=== PATIENT | female | born 1940 | race Caucasian/White ===

== ENCOUNTER → 2016-08-04 | Outpatient (CLI) | payer OTHER ==
[~2016-08-04] MED LIST: ANT25 PO; B-CO-25 PO; DLTCD/240 PO; FNTTP75 TOP; HYDR-5688 PO; IPRASOL4 NEB; LOSA100T65 PO; LSX40 PO; MECL1TAB42 PO; NAPR500T3 PO; OXYB15TA PO; PILO5TAB10 PO; POTA1TAB97 PO; POTA20TA13 PO; RANI150T2 PO; SENN-56 PO; SENN-61 PO; SYMIN160 INH; ULT50 PO; [UNRECOGNIZED DRUG - CODE] PO
[2016-08-04 17:24] LABS: BASO % 0.5 %; BASO ABS # 0.04 K/uL (0-0.2); COMPLETE YES; EOS % 5.1 %; HEMATOCRIT 39.9 % (37-47); IG% 0.2 %; LYMPH % 25.9 %; LYMPH ABS # 2.19 K/uL (1.2-3.4); MEAN CELL VOLUME 91.5 fL (80-100); MEAN CORPUSCULAR HGB CONC 33.8 g/dl (32-36); MEAN PLATELET VOLUME 11.1 fL (7.4-10.4); MONO % 8.2 %; NEUT % 60.1 %; PLATELET COUNT 227 K/uL (130-400); RED BLOOD COUNT 4.36 M/uL (4.2-5.4); WHITE BLOOD COUNT 8.45 K/uL (4.8-10.8)
[2016-08-04 17:26] LABS: URINE APPEARANCE CLEAR (CLEAR); URINE BILIRUBIN NEG (NEG); URINE COLOR YELLOW; URINE NITRITE NEG (NEG); URINE SPECIFIC GRAVITY 1.012 (1.000-1.030); UROBILINOGEN NEG (NEG)
[2016-08-04 17:29] LABS: MANUAL MICROSCOPIC REQUIRED? NO; REVIEW REQ? NO
[2016-08-04 18:08] LABS: ALKALINE PHOSPHATASE 86 U/L (45-117); ALT/SGPT 18 U/L (12-78); AST/SGOT 12 U/L (15-37); BLOOD UREA NITROGEN 11 mg/dl (7-18); BUN/CREATININE RATIO 18.8 (10-20); CALCIUM 9.2 mg/dl (8.5-10.1); CARBON DIOXIDE 30 mmol/L (21-32); CHLORIDE 107 mmol/L (98-107); CREATININE 0.58 mg/dl (0.60-1.20); GLUCOSE 86 mg/dl (70-99); POTASSIUM 3.2 mmol/L (3.5-5.1); SODIUM 144 mmol/L (136-145); TOTAL IRON BINDING CAPACITY 278 mcg/dl (250-450)
[2016-08-07 19:19] LABS: ANTI-SS-A <1.0 NEG AI (<1.0 NEG); ANTI-SS-B <1.0 NEG AI (<1.0 NEG)
--- NOTE | 2016-08-10 07:26 | CODING QUERY MEDICAL NECESSITY ---
CQSUPPORTING DIAGNOSIS NEEDED A supporting diagnosis is required for the test/procedure performed on this patient in order for us to be reimbursed by the patient's insurance. Please provide a supporting diagnosis for the following test/procedure listed below next to the test name along with your signature. *If there is no additional diagnosis for this patient that would support the following test/procedure please document that below next to the test/procedure. Test(s)/Procedure(s) that require a supporting diagnosis: DOS 08/04/16 VITAMIN B12 SERUM IRON STUDIES THESE TEST WERE ORDERED BY AIDEE LO Provider Signature: Date: Thank you Sandee Douglas Health Information Management Once completed, please kindly fax back to [phone] For questions please call [phone]
== END | disposition home or self-care (01) ==
LOC: C.LAB 16:15
DX: Z87.19 Personal history of other diseases of the digestive system (principal); J44.9 Chronic obstructive pulmonary disease, unspecified; H40.9 Unspecified glaucoma; R06.09 Other forms of dyspnea; R05 Cough; I67.1 Cerebral aneurysm, nonruptured; R32 Unspecified urinary incontinence; J45.909 Unspecified asthma, uncomplicated; R11.0 Nausea; R53.83 Other fatigue; E56.8 Deficiency of other vitamins

== ENCOUNTER 2016-09-07 18:15 | Emergency (ER) | payer OTHER ==
[~2016-09-07] VITALS: Ht 165.1 cm; Wt 121.8 kg
[~2016-09-07 18:15] MED LIST changes: -ANT25 PO; -B-CO-25 PO; -FNTTP75 TOP; -HYDR-5688 PO; -MECL1TAB42 PO; -POTA1TAB97 PO; -SENN-56 PO; -SYMIN160 INH; -[UNRECOGNIZED DRUG - CODE] PO
[2016-09-07 18:27] VITALS: TEMP 37.2; Ht 165.1 cm; Wt 121.8 kg
--- NOTE | 2016-09-07 19:04 | DIAGNOSTIC IMAGING REPORT ---
HEAD CT NONCONTRAST CT DOSE: 2189.99 mGy.cm HISTORY: fall TECHNIQUE: Multiaxial CT images of the head were performed without the use of intravenous contrast. Automated exposure control was utilized for this study. Comparison: Head CT 12/30/2015. Findings: The paranasal sinuses and mastoid air cells are clear. The calvarium and skull base are intact. The ventricles and sulci are within normal limits. There is no mass, hematoma, midline shift, or acute infarct. Impression: No acute intracranial abnormality. Electronically signed by: Efrain Hope M.D. 09/07/2016 7:03 PM Dictated Date/Time: 09/07/2016 6:59 PM
--- NOTE | 2016-09-07 19:10 | DIAGNOSTIC IMAGING REPORT ---
CERVICAL SPINE CT CT DOSE: HISTORY: fall TECHNIQUE: Multiaxial CT images of the cervical spine were performed and reformatted in the sagittal and coronal plane without the use of contrast. COMPARISON: None. FINDINGS: No fractures. No subluxation. Prevertebral soft tissues and the C1-C2 interval are intact. No pneumothorax. Multinodular thyroid gland. A 3 mm nodule within left lung apex. This is likely benign. Moderate to space narrowing at C5-C6 and C6-C7 with endplate osteophytes. Moderate facet degenerative changes throughout the cervical spine. IMPRESSION: No fractures within the cervical spine. Electronically signed by: Efrain Hope M.D. 09/07/2016 7:09 PM Dictated Date/Time: 09/07/2016 7:03 PM
[2016-09-07] MEDS ORDERED: ANT25 PO (20:01)
[2016-09-07] MEDS ORDERED: [UNRECOGNIZED DRUG - CODE] PO (20:01)
[2016-09-07 20:06] VITALS: BP 157/71; PULSE 65; O2SAT 96
--- NOTE | 2016-09-08 18:37 | EMERGENCY ROOM VISIT NOTE ---
History Report prepared by Angelo: Bere Bartlett Under the Supervision of: Dr. Reynaldo Quintana M.D. 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 The patient came to the ED via ambulance from the [facility] parking lot. She states that she was on her way to physical therapy at the edema clinic. The patient states that her was pushing her in her Rollator walker when the walker hit a break between the pavement and the sidewalk that caused her walker to fall over. The patient's fell to the side and she fell backwards. The patient states that she fell onto the curb and hit her buttocks/lower back. The patient states that her back was cushioned by the cushioned bar of the walker. She states that everything happened so quickly that she is unsure of if she hit head. She states that she laid on the ground on her back with her legs up for about 10 minutes. She experienced some dizziness when she got up from lying on the ground and is still experiencing dizziness with changes in position. The patient states that she did hit her left arm on the ground and has an abrasion there. She is also complaining of some left hip pain. The patient is also experiencing some mild neck pain. She states that she has chronic pain that may have been aggravated by falling. The patient has a fentanyl patch in place on her back. Pt denies LOC, headache, visual changes, chest pain, breathing difficulties, nausea, vomiting, abdominal pain, back pain, extremity pain beside left hip pain, numbness, weakness, open wounds, active bleeding, or other complaints. Source of History: patient Onset: BUSINESS PROFESSOR Position: other (global) Quality: other (fall) Timing: other (sudden) Associated Symptoms: + neck pain (mild) Note: dizziness with changes in position, left hip pain Review of Systems See HPI for pertinent positives and negatives. A total of ten systems were reviewed and were otherwise negative. Past Medical & Surgical Medical Problems: (1) Aneurysm of middle cerebral artery (2) Asthma (3) Bilateral cellulitis of lower leg (4) Contusion of lower limb, right (5) COPD (chronic obstructive pulmonary disease) (6) emphysema (7) Hypertension (8) Kidney disease (9) Venous stasis dermatitis Family History Lung disease Social History Smoking Status: Never Smoker Alcohol Use: none Drug Use: none Marital Status: Housing Status: lives with family Occupation Status: retired Current/Historical Medications Scheduled Diltiazem Hcl (Diltiazem Cd), 480 MG PO DAILY Furosemide (Furosemide), 40 MG PO DAILY Losartan Potassium (Cozaar), 100 MG PO DAILY Naproxen (Naproxen), 500 MG PO BID Oxybutynin Chloride (Oxybutynin Chloride Er), 15 MG PO BID Pilocarpine (Salagen), 10 MG PO QAM Pilocarpine HCl (Pilocarpine Hydrochloride), 1 TAB PO QID Potassium Chloride Microencaps (Potassium Chloride Er), 20 MEQ PO DAILY Ranitidine HCl (Ranitidine HCl), 300 MG PO QAM Senna (Senokot), 17.2 MG PO QAM Scheduled PRN Ipratropium-Albuterol (Duoneb), 3 ML NEB Q4H PRN for SOB/Wheezing Meclizine HCl (Meclizine HCl), 1 TAB PO Q8 PRN for Dizziness or Vertigo Tramadol HCl (Tramadol HCl), 50-100 MG PO Q6H PRN for Pain Allergies Coded Allergies: Penicillins (Verified Allergy, Unknown, Rash, 09/07/16) Shellfish (Verified Allergy, Unknown, SHORTNESS OF BREATH, 09/07/16) Physical Exam Vital Signs Date Time Temp Pulse Resp B/P (MAP) Pulse Ox O2 Delivery O2 Flow Rate FiO2 09/07/16 20:06 65 18 157/71 96 09/07/16 18:27 37.2 70 18 165/84 95 Room Air Physical Exam GENERAL: Awake, alert, well appearing, no distress HEAD: Normocephalic, atraumatic. No hampton sign. No raccoon eyes. EYES: Normal conjunctiva. PERRL. EARS: External ears normal. Right TM normal. Left TM normal. NOSE: Atraumatic OROPHARYNX: Lips, tongue, and mucosa unremarkable. No erythema or exudate. NECK: No tracheal deviation or JVD. Mild posterior lower midline tenderness. No step offs noted. RESPIRATORY: CTA bilaterally CARDIAC: Regular rate, normal rhythm. ABDOMEN: Inspection reveals no abnormalities. Soft, non distended. No tenderness to palpation. No hernias. BACK: No midline step offs or tenderness to palpation. Unremarkable. PELVIS: Stable to rock. SKIN: Normal. LYMPH: No adenopathy. MUSCULOSKELETAL: Small abrasion to left proximal forearm. Upper and lower extremities are otherwise atraumatic. Right lower extremity edema which patient states is chronic. Good range of motion of both hips. NEURO: GCS 15. Normal sensorium. No sensory or motor deficits noted. Medical Decision & Procedures ER Provider Diagnostic Interpretation: Radiology results as stated below per my review and radiologist interpretation: HEAD CT NONCONTRAST Findings: The paranasal sinuses and mastoid air cells are clear. The calvarium and skull base are intact. The ventricles and sulci are within normal limits. There is no mass, hematoma, midline shift, or acute infarct. Impression: No acute intracranial abnormality. Electronically signed by: Efrain Hope M.D. 09/07/2016 7:03 PM Dictated Date/Time: 09/07/2016 6:[address] FINDINGS: No fractures. No subluxation. Prevertebral soft tissues and the C1-C2 interval are intact. No pneumothorax. Multinodular thyroid gland. A 3 mm nodule within left lung apex. This is likely benign. Moderate to space narrowing at C5-C6 and C6-C7 with endplate osteophytes. Moderate facet degenerative changes throughout the cervical spine. IMPRESSION: No fractures within the cervical spine. Electronically signed by: Efrain Hope M.D. 09/07/2016 7:09 PM Dictated Date/Time: 09/07/2016 7:03 PM ED Course 1821: The patient was evaluated in room C9. A complete history and physical exam was performed. 1943: I reevaluated the patient. She is feeling well and is in agreement with following up as an outpatient. Discussed results and discharge instructions: she verbalized understanding and agreement. The patient is ready for discharge. Medical Decision Medication Reconciliation: I attest that I have personally reviewed the patient' s current medication list Blood pressure screening: Patient was found to have an elevated blood pressure and was referred to their primary doctor for recheck and further treatment. Triage Nursing notes reviewed. The patient's presentation and history were concerning for an accidental fall. Etiologies such as cervical strain, intracranial injury, soft tissue injury, fracture, dislocation, as well as others were entertained. The patient was evaluated. Clinically she was doing relatively well given the situation. The patient underwent CT imaging of the head and neck. Thankfully these were negative. She declined analgesia. She was reassessed and was doing well. Her presented to the emergency department. I did review all of the findings with them. The patient feels comfortable with conservative management. If she worsens in any way she will be back.I gave my usual and customary discussion regarding this issue. By the evaluation outlined above other emergent etiologies such as those listed in the differential, as well as others, were deemed relatively unlikely. The patient was educated about the findings as listed above. All questions were answered and the patient was pleased with the treatment. Return instructions were outlined and the patient was discharged in stable condition. The patient was referred to her PCP for follow-up for a recheck of the current condition. Impression Primary Impression: Accidental fall Additional Impression: Neck pain Scribe Attestation The scribe's documentation has been prepared under my direction and personally reviewed by me in its entirety. I confirm that the note above accurately reflects all work, treatment, procedures, and medical decision making performed by me. Departure Information Dispostion Home / Self-Care Referrals Lonnie Levy D.O. (PCP) Forms HOME CARE DOCUMENTATION FORM, IMPORTANT VISIT INFORMATION Patient Instructions My [facility] Additional Instructions Continue current medications. Warm compresses for 20 minutes at a time four times daily for 2-3 days. Tylenol: Take 1000 mg every 6 hours as needed for pain. Do not take more than 3000 mg in a 24 hour period. Follow-up with your primary physician next week for a recheck. Return to the ER for increasing neck pain, vomiting, chest pain, headache, passing out, difficulty breathing, fevers, numbness, tingling, worsening of your condition, or as needed. Problem Qualifiers Primary Impression: Accidental fall Encounter type: initial encounter Qualified Codes: W19.XXXA - Unspecified fall, initial encounter
== END 2016-09-07 20:07 | disposition home or self-care (01) ==
LOC: EDBD 18:15 → C.EDC 18:18
DX: M54.2 Cervicalgia (principal); W01.0XXA Fall on same level from slipping, tripping and stumbling without subsequent striking against object, initial encounter; I12.9 Hypertensive chronic kidney disease with stage 1 through stage 4 chronic kidney disease, or unspecified chronic kidney disease; N18.9 Chronic kidney disease, unspecified; J44.9 Chronic obstructive pulmonary disease, unspecified; J43.9 Emphysema, unspecified; J45.909 Unspecified asthma, uncomplicated; Z87.828 Personal history of other (healed) physical injury and trauma; Z79.899 Other long term (current) drug therapy; Z88.0 Allergy status to penicillin; Z91.018 Allergy to other foods

== ENCOUNTER → 2017-03-29 | Day surgery (SDC) | payer OTHER ==
[2017-03-22 13:10] VITALS: Ht 165.1 cm; Wt 120.9 kg
[~2017-03-29] VITALS: Ht 165.1 cm; Wt 120.9 kg
[~2017-03-29] MED LIST changes: +ANT25 PO; +B-CO-25 PO; +FNTTP75 TOP; +HYDR-5688 PO; -LSX40 PO; +MECL1TAB42 PO; -NAPR500T3 PO; +POTA1TAB97 PO; +PROPOFOL IV EMULSION 10 MG/ML 20 ML VIAL IV ONE; +SENN-56 PO; -SENN-61 PO; +SODIUM CHLORIDE 0.9% 500ML 500 ML IV ONE; +SYMIN160 INH; -ULT50 PO
[2017-03-29 14:45] VITALS: TEMP 36.8
--- NOTE | 2017-03-29 14:50 | Endo History and Physical ---
History & Physical Date of Service: Mar 29, 2017. Chief Complaint: Constipation, family hx colon ca Referring Physician: Lonnie Levy History of Present Illness Constipation Past Medical History Arthritis, Asthma, Hypertension, COPD Past Surgical History Hx Cardiac Surgery: Yes (HEART CATH, NO STENTS) Hx Internal Defibrillator: No Hx Pacemaker: No Hx Abdominal Surgery: Yes (PINA) Hx of Implantable Prosthesis: No Hx Post-Op Nausea and Vomiting: No Hx Cancer Surgery: No Hx Thoracic Surgery: No Hx Orthopedic: No Hx Urinary Tract Surgery: No Family History Colon CA Social History Smoking Status: Former Smoker Hx Substance Use: No Hx Alcohol Use: No Allergies Coded Allergies: Penicillins (Verified Allergy, Unknown, Rash, 03/22/17) Shellfish (Verified Allergy, Unknown, SHORTNESS OF BREATH, 03/22/17) Current Medications Reported Home Medications Medications Dose Route/Sig Max Daily Dose Days Date Category Dose Instructions Fentanyl 75 Mcg Tdsy 1 Patch TOP Q72H 01/31/17 Reported Symbicort 160/4.5 Inhaler (Budesonide/Formoterol Fumarate) Aero 2 Puffs INH BID PRN 01/31/17 Reported Meclizine Hcl 25 Mg Tab 1 Tab PO HS 01/31/17 Reported Super B Complex Maxi (B-Complex W/ Folic Acid) 1 Tab Tab 1 Tab PO DAILY 01/31/17 Reported Senna-Lax (Sennosides) 8.6 Mg Tab 1 Tab PO BID 01/31/17 Reported K-Tab (Potassium Chloride) 20 Meq Tab 1 Tab PO QPM 01/31/17 Reported [place] 5MG/325MG (Acetaminophen/Hydrocodone Bitart) Tab 1 Tablet PO Q4H PRN 01/31/17 Reported PRN PAIN Meclizine HCl 25 Mg Tab 2 Tabs PO QAM 09/07/16 Reported Diltiazem Cd (Diltiazem Hcl) 240 Mg Capcr 2 Tabs PO QAM 12/30/15 Reported Salagen (Pilocarpine HCl) 5 Mg Tab 2 Tabs PO BID 09/16/15 Reported Potassium Chloride Er (Potassium Chloride Microencaps) 20 Meq Tab 2 Tab PO QAM 11/19/14 Reported Oxybutynin Chloride Er (Oxybutynin Chloride) 15 Mg Tab 15 Mg PO BID 11/19/14 Reported Cozaar (Losartan Potassium) 100 Mg Tab 100 Mg PO QAM 11/19/14 Reported Duoneb (Ipratropium-Albuterol) 3 Ml Nebu 3 Ml NEB Q4H PRN 01/15/14 Reported Ranitidine HCl 150 Mg Tab 150 Mg PO BID 01/15/14 Reported Vital Signs Weight (Kilograms): 120.91 Height (Feet): 5 Height (Inches): 5 Date Time Temp Pulse Resp B/P (MAP) Pulse Ox O2 Delivery O2 Flow Rate FiO2 03/29/17 14:45 36.8 64 18 175/70 (105) 94 Room Air Physical Exam General Appearance: no apparent distress Respiratory/Chest: Auscultation: breath sounds normal Cardiovascular: Heart Auscultation: RRR Abdomen: Inspection & Palpation: soft Assessment and Plan Constipation - Cscopy
--- NOTE | 2017-03-29 15:57 | GI REPORT ---
Procedure Date: 03/29/2017 2:51 PM Procedure: Colonoscopy Indications: Constipation Medicines: See the Anesthesia note for documentation of the administered medications Complications: No immediate complications. Estimated Blood Loss: Estimated blood loss: none. Procedure: Pre-Anesthesia Assessment: - ASA Grade Assessment: III - A patient with severe systemic disease. After I obtained informed consent, the scope was passed under direct vision. Throughout the procedure, the patient's blood pressure, pulse, and oxygen saturations were monitored continuously. The scope was introduced through the anus and advanced to the ileocecal valve. The patient tolerated the procedure well. The quality of the bowel preparation was fair. The colonoscopy was unusually difficult due to a redundant colon. Findings: Rectal prolapse. The colon was markedly redundant. There was a large amount of liquid opaque stool in the colon; the right colon and cecal cap could not be completely cleared. The cecum could not be intubated due to excessive looping. The examined portion of the colon was normal Impression: - Preparation of the colon was fair. Cecal cap not intubated. - Rectal prolapse. Examined portion of the colon was normal. Recommendation: - Consider cologuard. - Discharge patient to home. Hector Benítez M.D. Hector Benítez MD 03/29/2017 3:56:45 PM This report has been signed electronically. Note Initiated On: 03/29/2017 2:51 PM I attest to the content of the Intraoperative Record and orders documented therein, exceptions below
--- NOTE | 2017-03-29 16:10 | Anesthesiology Progress Note ---
Anesthesia Post Op Note Date & Time Mar 29, 2017 at 16:09 Vital Signs Vital Signs Past 12 Hours Date Time Temp Pulse Resp B/P (MAP) Pulse Ox O2 Delivery O2 Flow Rate FiO2 03/29/17 15:54 69 18 141/68 (92) 98 Room Air 03/29/17 14:45 36.8 64 18 175/70 (105) 94 Room Air Notes Mental Status: alert / awake / arousable, participated in evaluation Pt Amnestic to Procedure: Yes Nausea / Vomiting: adequately controlled Pain: adequately controlled Airway Patency, RR, SpO2: stable & adequate BP & HR: stable & adequate Hydration State: stable & adequate Anesthetic Complications: no major complications apparent
--- NOTE | 2017-03-29 16:21 | Discharge Instructions ---
Endoscopy Patient Instructions Date / Procedure(s) Performed Mar 29, 2017. Colonoscopy Allergy Information Coded Allergies: Penicillins (Verified Allergy, Unknown, Rash, 03/22/17) Shellfish (Verified Allergy, Unknown, SHORTNESS OF BREATH, 03/22/17) Discharge Date / Findings Mar 29, 2017. Fair prep. Scope advanced only to IC valve, but grossly normal. Provider Instructions Activity Restrictions - No exercising or heavy lifting for 24 hours. - Do not drink alcohol the day of the procedure. - Do not drive a car or operate machinery until the day after the procedure. - Do not make any important decisions or sign important papers in 24 hours after the procedure. Following Day: - Return to full activity which may include returning to work/school. Diet Start your diet with liquids and light foods (jello, soup, juice, toast). Then eat your usual diet if not nauseated. Treatment For Common After Affects For mild abdominal pain, bloating, or excessive gas: - Rest - Eat lightly - Lie on right side Follow-Up Information Follow-up with Lonnie Levy as scheduled Anesthesia Information What You Should Know You have had a procedure that required some medicine to reduce anxiety and discomfort. This treatment is called moderate sedation. After receiving the treatment, you may be sleepy, but you will be able to breathe on your own. The effects of the treatment may last for several hours. Follow these instructions along with Activity/Diet recommendations noted above: * Do NOT do anything where dizziness or clumsiness would be dangerous. * Rest quietly at home today, then you can be up and about tomorrow. * Have a responsible person stay with you the rest of today. * You may have had an I.V. today. If so, you may take the dressing off later today. Recommendations Call your doctor if: * Trouble breathing * Continuous vomiting for more than 24 hours * Temperature above 101 degrees * Severe abdominal pain or bloating * Pain not relieved by pain medicine ordered * There is increased drainage or redness from any incision * A large amount of rectal bleeding greater than 2-3 tablespoons. (If you had a polyp/s removed or have hemorrhoids, a small amount of blood - from the rectum is to be expected.) * You have any unanswered questions or concerns. IN THE EVENT OF A SERIOUS EMERGENCY, GO TO THE NEAREST EMERGENCY ROOM Your discharge instructions were prepared by provider Hector Watt. Patient Instructions Signature Page Jeimy Bautista Patient (or Guardian) Signature/Date: I have read and understand the instructions given to me by my caregivers. Caregiver/RN/Doctor Signature/Date: The above-named patient and/or guardian has received patient instructions on this date. + Original Patient Signature Page (only) stays with chart. Please make copy for patient.
[2017-03-29 16:24] VITALS: BP 170/80; PULSE 67; O2SAT 98
== END | disposition home or self-care (01) ==
LOC: C.GI 13:10
PROVIDERS: ATTEND Internal Medicine Gastroenterology
DX: K59.00 Constipation, unspecified (principal); K62.3 Rectal prolapse; J44.9 Chronic obstructive pulmonary disease, unspecified; J45.909 Unspecified asthma, uncomplicated; E11.9 Type 2 diabetes mellitus without complications; G47.33 Obstructive sleep apnea (adult) (pediatric); I10 Essential (primary) hypertension; E66.9 Obesity, unspecified; Z68.41 Body mass index [BMI] 40.0-44.9, adult; Z90.89 Acquired absence of other organs; Z98.49 Cataract extraction status, unspecified eye; Z87.891 Personal history of nicotine dependence; Z90.49 Acquired absence of other specified parts of digestive tract; Z91.013 Allergy to seafood; Z88.0 Allergy status to penicillin; Z80.0 Family history of malignant neoplasm of digestive organs

== ENCOUNTER → 2017-04-06 | Outpatient (CLI) | payer OTHER ==
[~2017-04-06] MED LIST changes: -PROPOFOL IV EMULSION 10 MG/ML 20 ML VIAL IV ONE; -SODIUM CHLORIDE 0.9% 500ML 500 ML IV ONE
[2017-04-06 18:07] LABS: BASO % 0.4 %; BASO ABS # 0.03 K/uL (0-0.2); EOS % 4.9 %; EOS ABS # 0.35 K/uL (0-0.5); HEMATOCRIT 41.3 % (37-47); HEMOGLOBIN 14.5 g/dL (12.0-16.0); IG# 0.02 K/uL (0.00-0.02); LYMPH % 26.3 %; LYMPH ABS # 1.87 K/uL (1.2-3.4); MEAN CORPUSCULAR HEMOGLOBIN 31.9 pg (25-34); MEAN CORPUSCULAR HGB CONC 35.1 g/dl (32-36); MONO % 7.9 %; MONO ABS # 0.56 K/uL (0.11-0.59); NEUT % 60.2 %; NEUT ABS # 4.27 K/uL (1.4-6.5); PLATELET COUNT 201 K/uL (130-400); RED CELL DISTRIBUTION WIDTH CV 13.5 % (11.5-14.5); RED CELL DISTRIBUTION WIDTH SD 44.8 fL (36.4-46.3)
[2017-04-06 18:32] LABS: BLOOD UREA NITROGEN 14 mg/dl (7-18); CALCIUM 9.4 mg/dl (8.5-10.1); CARBON DIOXIDE 31 mmol/L (21-32); CREATININE 0.53 mg/dl (0.60-1.20); GLUCOSE 118 mg/dl (70-99); POTASSIUM 3.2 mmol/L (3.5-5.1); SODIUM 141 mmol/L (136-145)
== END | disposition home or self-care (01) ==
LOC: C.LAB 17:23
PROVIDERS: ATTEND Urology
DX: Z01.810 Encounter for preprocedural cardiovascular examination (principal); Z01.812 Encounter for preprocedural laboratory examination; N39.41 Urge incontinence